=== PATIENT | female | born 1955 | race Caucasian/White ===

== ENCOUNTER → 2017-01-07 | Outpatient (CLI) | payer OTHER ==
[~2017-01-07] MED LIST: ANTIVERT 25MG25 MG PO; COLACE 100100 MG/CAP PO; LEVAQUIN 5500 MG/TAB PO; NO HOME MEDICATIONS; NORCO 325 MG-51 TAB PO; VITAMIN D2000 I1; VITAMIN E100 I3; ZOFRAN 4MG T4 MG/TAB PO
== END ==
LOC: MC.RAD 13:50
DX: Z12.31 Encounter for screening mammogram for malignant neoplasm of breast (principal)

== ENCOUNTER → 2017-07-24 | Outpatient (CLI) | payer OTHER | LOC: COL.RAD 07:11 | DX: E04.2 Nontoxic multinodular goiter (principal) ==

== ENCOUNTER 2018-01-28 07:04 | Emergency (ER) | payer OTHER ==
[~2018-01-28] VITALS: Ht 162.6 cm; Wt 68.2 kg
[2018-01-28 07:09] VITALS: TEMP 97.9
[2018-01-28] MEDS ORDERED: VITAMIN D 400400 IU PO (07:28)
[2018-01-28] MEDS ORDERED: TURMERIC500 MG PO (07:29)
[2018-01-28] MEDS ORDERED: MASON NATURAL600 MG PO (07:29)
[2018-01-28 07:32] LABS: BASO # 0.1 (0.0-0.2); BASO % 0.7 % (0.0-2.0); EOS # 0.1 (0.0-0.7); EOS % 1.3 % (0-4.0); GRAN # 3.7 (1.4-6.5); GRAN % 54.9 % (42.2-75.2); HEMATOCRIT 47.6 % (37.0-47.0); HEMOGLOBIN 15.9 g/dl (12.5-16.0); LYMPH # 2.3 (1.2-3.4); MEAN CELL VOLUME 90 fl (80.0-100.0); MEAN CORPUSCULAR HEMOGLOBIN 30 pg (27.0-31.0); MEAN CORPUSCULAR HGB CONC 33 g/dl (33.0-37.0); MEAN PLATELET VOLUME 10.6 fl (7.4-10.4); MONO # 0.5 (0.1-0.6); MONO % 7.8 % (1.7-9.3); PLATELET COUNT 250 K/mm3 (130-400); REDCELL DISTRIBUTION WIDTH-CV 12.1 % (11.5-14.5)
[2018-01-28 07:36] LABS: INR 0.9 (0.8-3.0); PROTHROMBIN TIME 10.7 SECONDS (9.7-12.8)
[2018-01-28 07:38] LABS: PARTIAL THROMBOPLASTIN TIME 31.8 SECONDS (26.0-37.0)
[2018-01-28 07:41] LABS: ALANINE AMINOTRANSFERASE 18 U/L (9-52); ALBUMIN 4.7 gm/dL (3.5-5.0); ALKALINE PHOSPHATASE 82 U/L (50-136); ANION GAP 8 mmol/L (7-16); AST,SGOT 27 U/L (15-37); BLOOD UREA NITROGEN 17 mg/dL (7-17); CALCIUM 9.9 mg/dL (8.4-10.2); CARBON DIOXIDE 27 mmol/L (22-30); CHLORIDE 108 mmol/L (98-107); CREATININE, serum 0.68 mg/dL (0.52-1.25); GLUCOSE 95 mg/dL (74-106); SODIUM 143 mmol/L (137-145); TOTAL PROTEIN 8.2 gm/dL (6.4-8.2)
[2018-01-28 07:54] LABS: TROPONIN-I < 0.012 ng/mL (0.000-0.034)
[2018-01-28] MEDS ORDERED: LOPRESSOR 225 MG/TAB PO (09:13)
[2018-01-28] MEDS ORDERED: NITROSTAT0.4 MG/TAB SL (09:13)
[2018-01-28 10:00] VITALS: BP 137/81; PULSE 70
== END 2018-01-28 10:00 | disposition home or self-care (01) ==
LOC: COL.ER 07:04
PROVIDERS: Family Medicine
DX: R07.89 Other chest pain (principal); I10 Essential (primary) hypertension; E78.5 Hyperlipidemia, unspecified

== ENCOUNTER 2018-02-12 13:17 | Day surgery (SDC) | payer OTHER ==
[~2018-02-12] VITALS: Ht 162.6 cm; Wt 68.5 kg
[2018-02-12] VITALS (13 sets, daily range): BP systolic 121–159; BP diastolic 62–85; PULSE 48–66; TEMP 97.7
[~2018-02-12 13:17] MED LIST changes: +LOPRESSOR 225 MG/TAB PO; +MASON NATURAL600 MG PO; +NITROSTAT0.4 MG/TAB SL; +TURMERIC500 MG PO; +VITAMIN D 400400 IU PO
[2018-02-12] MEDS ORDERED: LOPRESSOR 550 MG/TAB PO (13:47)
[2018-02-12] MEDS ORDERED: ASPIRIN 81M81 MG/TA2 PO (13:48)
[2018-02-12 13:54] LABS: HEMATOCRIT 42.9 % (37.0-47.0); HEMOGLOBIN 14.3 g/dl (12.5-16.0); MEAN CELL VOLUME 89 fl (80.0-100.0); MEAN CORPUSCULAR HEMOGLOBIN 30 pg (27.0-31.0); MEAN CORPUSCULAR HGB CONC 33 g/dl (33.0-37.0); MEAN PLATELET VOLUME 10.9 fl (7.4-10.4); PLATELET COUNT 255 K/mm3 (130-400); RED BLOOD COUNT 4.81 M/mm3 (4.10-5.30); REDCELL DISTRIBUTION WIDTH-CV 12.2 % (11.5-14.5)
[2018-02-12 14:00] LABS: PROTHROMBIN TIME 11.3 SECONDS (9.7-12.8)
[2018-02-12 14:02] LABS: CALCIUM 9.5 mg/dL (8.4-10.2); CREATININE, serum 0.73 mg/dL (0.52-1.25)
--- NOTE | 2018-02-12 14:50 | NUR ---
ALL MEDS GIVEN VIA VERBAL WITH READBACK. SEE MERGE FOR ADMIN TIMES.
--- NOTE | 2018-02-12 15:00 | NUR ---
Report from Jaimee GAVIN lab instructor. Right groin site CD&I, soft to palpation with good pedal pulses. VSS. Spouse bedside
--- NOTE | 2018-02-12 19:01 | NUR ---
Increased HOB to 30 degrees. Right groin continues to be soft to palpation. VSS
--- NOTE | 2018-02-12 19:44 | NUR ---
INT discontinued intact. Discharge instructions givem . Transferred to private car by [email or web address]
== END 2018-02-12 19:45 | disposition home or self-care (01) ==
LOC: COL.CAR 13:17
PROVIDERS: Internal Medicine Interventional Cardiology
DX: R07.89 Other chest pain (principal); R94.39 Abnormal result of other cardiovascular function study; I10 Essential (primary) hypertension; Z79.82 Long term (current) use of aspirin; Z82.49 Family history of ischemic heart disease and other diseases of the circulatory system; Z87.891 Personal history of nicotine dependence
CPT/HCPCS: J1644; J2250; J3010

== ENCOUNTER → 2018-08-11 | Outpatient (CLI) | payer OTHER ==
[~2018-08-11] MED LIST changes: +ASPIRIN 81M81 MG/TA2 PO; +LOPRESSOR 550 MG/TAB PO
== END ==
LOC: MC.RAD 08:00
DX: Z12.31 Encounter for screening mammogram for malignant neoplasm of breast (principal)

== ENCOUNTER → 2020-02-23 | Outpatient (CLI) | payer OTHER | LOC: MC.RAD 13:23 | DX: Z12.31 Encounter for screening mammogram for malignant neoplasm of breast (principal) ==

== ENCOUNTER 2021-04-10 17:38 | Emergency (ER) | payer MEDICARE, BC ==
[~2021-04-10] VITALS: Ht 160 cm; Wt 68.2 kg
[2021-04-10 17:42] VITALS: TEMP 99.5
[2021-04-10] MEDS ORDERED: NORCO 325 MG-51 TAB PO (18:42)
[2021-04-10] MEDS ORDERED: CRUTCHES MC (18:43)
[2021-04-10 18:44] VITALS: BP 151/77; PULSE 83
== END 2021-04-10 18:57 | disposition home or self-care (01) ==
LOC: COL.ER 17:38
DX: S82.852A Displaced trimalleolar fracture of left lower leg, initial encounter for closed fracture (principal); X58.XXXA Exposure to other specified factors, initial encounter
CPT/HCPCS: J1885

== ENCOUNTER → 2021-09-13 | Outpatient (CLI) | payer MEDICARE, BC ==
[~2021-09-13] MED LIST changes: +CRUTCHES MC
== END ==
LOC: MC.RAD 07:42
DX: Z12.31 Encounter for screening mammogram for malignant neoplasm of breast (principal)